=== PATIENT | female | born 1945 | race Caucasian/White ===

== ENCOUNTER 2016-10-24 08:56 | Emergency (ER) | payer MEDICARE, OTHER ==
[2016-10-24 09:23] VITALS: BP 133/84
[2016-10-24] MEDS ORDERED: Tetan/Diph/Pertus SYR(Tdap)* 0.5 ML SYR(BOOSTRIX) use SYR IM ONE (09:36)
--- NOTE | 2016-10-24 09:42 | UC ---
Bite Injury/Animal HPI - HPI Summary HPI Summary: neighbors dog was playing fetch and she had bite to right middle distal finger yesterday. there is swelling today. - History of Current Complaint Chief Complaint: Mary[place]uy Stated Complaint: RIGHT MIDDLE FINGER PUNCTURE WOUND Time Seen by Provider: 10/24/16 09:16 Hx Obtained From: Patient ?: No Severity Currently: Moderate Severity Initially: Mild Onset/Duration: Gradual Onset, Lasting Hours Type of Bite: Pet Has Animal Been Immunized?: Yes Character: Puncture Aggravating Factor(s): Exertion - and palpation. Alleviating Factor(s): Rest Associated Signs And Symptoms: Positive: Erythema, Swelling, Limited ROM. Negative: Fever, Drainage, Lymphadenopathy, Numbness/Tingling Animal Available for Observation: Yes Animal Control Notified: Yes - Allergies/Home Medications Allergies/Adverse Reactions: Allergies Allergy/AdvReac Type Severity Reaction Status Date / Time Adhesive Tape Allergy Unknown Blisters Verified 10/24/16 09:13 Iodinated Contrast Media Allergy Difficulty Verified 10/24/16 09:13 [IV CONTRAST DYE] Breathing Penicillins Allergy Rash Verified 10/24/16 09:13 Sulfa Drugs Allergy Unknown Verified 10/24/16 09:13 Reaction Details Home Medications: Home Medications Aspirin Low Dose CHEW TAB* [Aspirin Low Dose TAB*] 81 mg PO DAILY 10/24/16 [ History Confirmed 10/24/16] Calcium Carbonate [Calcium] 1,000 mg PO DAILY 10/24/16 [History Confirmed ] Letrozole (NF) [Femara (NF)] 2.5 mg PO 10/24/16 [History] Probiotic Product [Acidophilus] 1 cap PO 10/24/16 [History] PMH/Surg Hx/FS Hx/Imm Hx Previously Healthy: No - breast cancer. - Surgical History Surgical History: Yes Surgery Procedure, Year, and Place: Bilateral Cataract Extraction. LEFT PARTIAL MASTECTOMY. LEFT CARPAL TUNNLE REPAIR - Family History Known Family History: Positive: Other - no related family history. - Social History Alcohol Use: Rare Substance Use Type: None Smoking Status (MU): Former Smoker When Did the Patient Quit Smoking/Using Tobacco: 8 YEARS - Immunization History Most Recent Tetanus Shot: OVER 7 YRS AGO Review of Systems Skin: Other - puncture wound. All Other Systems Reviewed And Are Negative: Yes Physical Exam Triage Information Reviewed: Yes Appearance: Well-Appearing, No Pain Distress, Well-Nourished Vital Signs: Initial Vital Signs Temp 98 F 10/24/16 09:16 Pulse 84 10/24/16 09:16 Resp 16 10/24/16 09:16 BP 133/84 10/24/16 09:16 Pulse Ox 99 10/24/16 09:16 Vital Signs Reviewed: Yes Eye Exam: Normal ENT Exam: Normal Neck exam: Normal Respiratory Exam: Normal Cardiovascular Exam: Normal Abdominal Exam: Normal Musculoskeletal Exam: Normal Neurological Exam: Normal Psychological Exam: Normal Skin Exam: Other Skin: Positive: Other - right distal middle finger two small puncture wounds. there is distal phalynx mild swelling without fluctuance. no drainage. NO streaking. Bite Injury Course/Dx - Course Course Of Treatment: dog bite infection. she will have this evaluated either pcp or here if there is no improvement in the next 1-2 days. - Differential Dx/Diagnosis Differential Diagnosis/HQI/PQRI: Cellulitis, Crush Injury, Fracture Provider Diagnoses: dog bite infection/cellulitis right middle finger. Discharge - Discharge Plan Condition: Good Disposition: HOME Prescriptions: DOXYcycline CAP(*) [DOXYcycline 100MG CAP(*)] 100 mg PO BID #20 cap Patient Education Materials: Animal Bite (ED), Cellulitis (ED) Referrals: Florian Ochoa MD [Primary Care Provider] - If Needed Additional Instructions: epsom salt soaks three times a day. have this looked at again either here or by pcp in the next 1-2 days if not improving.
== END 2016-10-24 09:59 | disposition home or self-care (01) ==
LOC: UCCORT 08:56
DX: S61.252A Open bite of right middle finger without damage to nail, initial encounter (principal); L03.011 Cellulitis of right finger; W54.0XXA Bitten by dog, initial encounter; Z23 Encounter for immunization
CPT/HCPCS: 90471; 90715; 99212; G0463

== ENCOUNTER 2016-10-25 14:39 | Emergency (ER) | payer MEDICARE, OTHER ==
[2016-10-25 14:58] VITALS: BP 133/71
--- NOTE | 2016-10-25 15:20 | UC ---
Bite Injury/Animal HPI - HPI Summary HPI Summary: infected right 3rd finger x 2 days dog bite right 3rd finger, finger is red , swollen, tender, no discharge has been taking doxy x 1 day , no improving - History of Current Complaint Chief Complaint: UCSkin Stated Complaint: RIGHT MIDDLE FINGER DOG BITE RECHECK Time Seen by Provider: 10/25/16 15:05 Hx Obtained From: Patient Severity Currently: Moderate Severity Initially: Moderate Onset/Duration: Sudden Onset, Lasting Days - 2, Still Present Type of Bite: Animal - dog Has Animal Been Immunized?: Yes Aggravating Factor(s): Exertion Alleviating Factor(s): Rest Associated Signs And Symptoms: Positive: Erythema - right 3rd finger Animal Available for Observation: Yes Animal Control Notified: Yes - Allergies/Home Medications Allergies/Adverse Reactions: Allergies Allergy/AdvReac Type Severity Reaction Status Date / Time Adhesive Tape Allergy Unknown Blisters Verified 10/25/16 14:52 Iodinated Contrast Media Allergy Difficulty Verified 10/25/16 14:52 [IV CONTRAST DYE] Breathing Penicillins Allergy Rash Verified 10/25/16 14:52 Sulfa Drugs Allergy Unknown Verified 10/25/16 14:52 Reaction Details PMH/Surg Hx/FS Hx/Imm Hx Previously Healthy: Yes - Surgical History Surgical History: Yes Surgery Procedure, Year, and Place: Bilateral Cataract Extraction. LEFT PARTIAL MASTECTOMY. LEFT CARPAL TUNNLE REPAIR - Family History Known Family History: Positive: Other - no related family history. Negative: Diabetes - Social History Alcohol Use: Rare Substance Use Type: None Smoking Status (MU): Former Smoker When Did the Patient Quit Smoking/Using Tobacco: 8 YEARS - Immunization History Most Recent Tetanus Shot: OVER 7 YRS AGO Review of Systems Constitutional: Negative Skin: Negative Eyes: Negative ENT: Negative Respiratory: Negative Cardiovascular: Negative Gastrointestinal: Negative All Other Systems Reviewed And Are Negative: Yes Physical Exam Triage Information Reviewed: Yes Appearance: Well-Appearing, No Pain Distress, Well-Nourished Vital Signs: Initial Vital Signs Temp 98 F 10/25/16 14:53 Pulse 81 10/25/16 14:53 Resp 16 10/25/16 14:53 BP 133/71 10/25/16 14:53 Pulse Ox 99 10/25/16 14:53 Vital Signs Reviewed: Yes Eyes: Positive: Conjunctiva Clear ENT: Positive: Normal ENT inspection, Hearing grossly normal, Pharynx normal Neck: Positive: Supple, Nontender, No Lymphadenopathy Respiratory: Positive: Chest non-tender, Lungs clear, Normal breath sounds Cardiovascular: Positive: RRR, No Murmur, Pulses Normal Musculoskeletal: Positive: Other: - right 3rd finger : small puncute wound from the dog bite, + erythema, mild swellig, mild tenderness Bite Injury Course/Dx - Differential Dx/Diagnosis Provider Diagnoses: cellulitis finger. dog bite finger Discharge - Discharge Plan Condition: Stable Disposition: HOME Prescriptions: Amoxicillin/Clavulanate TAB* [Augmentin TAB 875*] 875 mg PO BID #20 tab Patient Education Materials: Animal Bite (ED), Cellulitis (ED) Referrals: Florian Ochoa MD [Primary Care Provider] - 5 Days Additional Instructions: WILL HAVE YOU STOP DOXY START AUGMENTIN HX PNE ALLERGY : RASH , STOP AUGMENTIN IF HAVING A SKIN RASH
== END 2016-10-25 15:30 | disposition home or self-care (01) ==
LOC: UCCORT 14:39
DX: S61.232D Puncture wound without foreign body of right middle finger without damage to nail, subsequent encounter (principal); L03.011 Cellulitis of right finger; W54.0XXD Bitten by dog, subsequent encounter; Z91.041 Radiographic dye allergy status; Z88.0 Allergy status to penicillin; Z88.2 Allergy status to sulfonamides; Z91.048 Other nonmedicinal substance allergy status; Z87.891 Personal history of nicotine dependence
CPT/HCPCS: 99212; G0463

== ENCOUNTER 2019-01-31 07:57 | Emergency (ER) | payer MEDICARE, OTHER ==
[2019-01-31 08:13] VITALS: BP 125/73
--- NOTE | 2019-01-31 08:21 | UC ---
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 -its feelingw arm and she can feel her heartbeat in her thumb. has had cellulitis over the years w/ gardening and other things that feel similar. no drainage. no abcess -no f/c. -she has taken keflex and augmentin in past for cellulitis w/o problem. brandon has been resistent in past -initially thought it was OA as she was making cookies yesterday and used it a lot. no known cuts. - History of Current Complaint Chief Complaint: UCSkin Time Seen by Provider: 01/31/19 08:13 Stated Complaint: RIGHT HAND SKIN Pain Intensity: 4 - Allergy/Home Medications Allergies/Adverse Reactions: Allergies Allergy/AdvReac Type Severity Reaction Status Date / Time Adhesive Tape Allergy Unknown Blisters Verified 01/31/19 08:13 MS Iodinated Contrast Media Allergy Difficulty Verified 01/31/19 08:13 [IV CONTRAST DYE] Breathing MS Penicillins [Penicillins] Allergy Rash Verified 01/31/19 08:13 MS Sulfa Drugs [Sulfa Drugs] Allergy Unknown Verified 01/31/19 08:13 Reaction Details Home Medications: Home Medications Latanoprost/Pf [Latanoprost 0.005% Eye Drop] 7.5 ml OP 01/31/19 [History Confirmed 01/31/19] PMH/Surg Hx/FS Hx/Imm Hx Previously Healthy: Yes - Surgical History Surgical History: Yes Surgery Procedure, Year, and Place: Bilateral Cataract Extraction. LEFT PARTIAL MASTECTOMY. LEFT CARPAL TUNNLE REPAIR - Family History Known Family History: Positive: Other - no related family history. Negative: Diabetes - Social History Alcohol Use: Rare Substance Use Type: None Smoking Status (MU): Former Smoker When Did the Patient Quit Smoking/Using Tobacco: 8 YEARS - Immunization History Most Recent Tetanus Shot: OVER 7 YRS AGO Review of Systems All Other Systems Reviewed And Are Negative: Yes Constitutional: Positive: Negative Skin: Positive: Other - right thumb redness, warmth. Eyes: Positive: Negative ENT: Positive: Negative Respiratory: Positive: Negative Cardiovascular: Positive: Negative Gastrointestinal: Positive: Negative Genitourinary: Positive: Negative. Negative: Dysuria Motor: Positive: Negative Neurovascular: Positive: Other - increased pulse sensation and warmth rt thumb. she is left hand dominant Neurological: Positive: Negative Psychological: Positive: Negative Is Patient Immunocompromised?: No Physical Exam Triage Information Reviewed: Yes Appearance: Well-Appearing, No Pain Distress, Well-Nourished - very pleasant Vital Signs: Initial Vital Signs Temp 98.0 F 01/31/19 08:07 Pulse 86 01/31/19 08:07 Resp 16 01/31/19 08:07 BP 125/73 01/31/19 08:07 Pulse Ox 100 01/31/19 08:07 Vital Signs Reviewed: Yes Eye Exam: Normal ENT Exam: Normal ENT: Negative: Pharynx normal Respiratory Exam: Normal Respiratory: Positive: Lungs clear Cardiovascular Exam: Normal Cardiovascular: Positive: RRR Musculoskeletal Exam: Normal Neurological Exam: Normal Psychological Exam: Normal Skin: Positive: Rashes - right distal flexor thumb with mild erythema, warmth to touch +tender. no abscess, no dc. no paranychia. no fluctuance. no abrasions/ skin breaks seen. Course/Dx - Course Course Of Treatment: mild rt thumb cellulitis, no dc or bascess. has had cellulitis in past w/ treatment successfule w/ keflex in past. -she is very agreeable w/ plan. - Differential Diagnoses - Skin Complaint Differential Diagnoses: Cellulitis, Contact Dermatitis - Diagnoses Provider Diagnosis: Cellulitis of right thumb Discharge ED - Sign-Out/Discharge Documenting (check all that apply): Patient Departure All imaging exams completed and their final reports reviewed: No Studies - Discharge Plan Condition: Stable Disposition: HOME Prescriptions: Cephalexin CAP* [Keflex CAP*] 500 mg PO TID #30 cap Patient Education Materials: Cellulitis (ED) Referrals: Florian Ochoa MD [Primary Care Provider] - 5 Days Additional Instructions: It is recommended that you take a probiotic daily while you are on antibiotics. A few common brands that you can buy over the counter are colon health, align and florastor. These can help prevent a colon infection called c diff that can be associated with antibiotic use. -If your symptoms get worse - fevers/chills/drainage, please go to the ER - Billing Disposition and Condition Condition: STABLE Disposition: Home
== END 2019-01-31 08:53 | disposition home or self-care (01) ==
LOC: UCCORT 07:57
DX: L03.011 Cellulitis of right finger (principal); Z91.09 Other allergy status, other than to drugs and biological substances; Z88.0 Allergy status to penicillin; Z88.2 Allergy status to sulfonamides; Z91.041 Radiographic dye allergy status; Z87.891 Personal history of nicotine dependence
CPT/HCPCS: 99212; G0463